=== PATIENT | female | born 1945 | race Native Hawaiian/Other Pacific Islander ===

== ENCOUNTER 2022-09-29 22:37 | Emergency (ER) | payer OTHER ==
[~2022-09-29] VITALS: Ht 142.2 cm; Wt 92.5 kg
[2022-09-29 22:40] VITALS: BP 177/93; TEMP 98.2
[2022-09-29 23:12] LABS: PLATELET COUNT 103 K/uL (152-353)
[2022-09-30] MEDS ORDERED: ASPERCREME LIDOCA41 EX (08:59)
[2022-09-30] MEDS ORDERED: CALCIUM 600 WIT1 TAB PO (09:00)
[2022-09-30] MEDS ORDERED: ROSUVASTATIN CA40 MG PO (09:00)
[2022-09-30] MEDS ORDERED: DULOXETINE HCL20 MG PO (09:01)
[2022-09-30] MEDS ORDERED: HYDR25TA60 PO (09:01)
[2022-09-30] MEDS ORDERED: LOSA50TA PO (09:02)
[2022-09-30] MEDS ORDERED: LANTUS SOL100 UNIT/M SC (09:02)
[2022-09-30] MEDS ORDERED: NOVOLOG100 UNIT/M SC (09:03)
[2022-09-30] MEDS ORDERED: METF100038 PO (09:03)
[2022-09-30] MEDS ORDERED: OXYCODONE HYDRO10 MG PO (09:04)
[2022-09-30] MEDS ORDERED: PEPTO-BISM525 MG/15 PO (09:05)
[2022-09-30] MEDS ORDERED: [UNRECOGNIZED DRUG - OTHER] PO (09:06)
[2022-09-30] MEDS ORDERED: LYRICA100 MG PO (09:06)
[2022-09-30] MEDS ORDERED: DAILY PROBIOTI250 MG PO (09:07)
[2022-09-30] MEDS ORDERED: RYBELSUS14 MG PO (09:08)
[2022-09-30] MEDS ORDERED: ROPINIROLE2 M1 PO (09:08)
[2022-09-30] MEDS ORDERED: TRAZ100T PO (09:09)
[2022-09-30] MEDS ORDERED: DICL1GEL2 TOP (09:10)
[2022-09-30] MEDS ORDERED: EZETIMIBE10 MG PO (09:10)
[2022-09-30] MEDS ORDERED: ONDA4TAB3 PO (09:12)
[2022-10-07] MEDS ORDERED: CALC600T4 PO (11:03)
[2022-10-07] MEDS ORDERED: KAOPECTATE262 MG/15 PO (11:03)
[2022-10-07] MEDS ORDERED: Atorvastatin Calcium PO (11:03)
[2022-10-07] MEDS ORDERED: HYDR25TA60 PO (11:04)
[2022-10-07] MEDS ORDERED: Voltaren GEL 1% 100G TOP (11:04)
[2022-10-07] MEDS ORDERED: EZET10TA13 PO (11:04)
[2022-10-07] MEDS ORDERED: DULO30CA PO (11:04)
[2022-10-07] MEDS ORDERED: CHOL100034 PO (11:04)
[2022-10-07] MEDS ORDERED: INSU100P SC (11:05)
[2022-10-07] MEDS ORDERED: INSU-1996 SC (11:05)
[2022-10-07] MEDS ORDERED: ONDA4TAB3 PO (11:06)
[2022-10-07] MEDS ORDERED: LIDOPATCH TOP (11:06)
[2022-10-07] MEDS ORDERED: METF500T PO (11:06)
[2022-10-07] MEDS ORDERED: LOSA50TA PO (11:06)
[2022-10-07] MEDS ORDERED: TRAZ50TA36 PO (11:07)
[2022-10-07] MEDS ORDERED: ROPINIROLE0.5 MG PO (11:07)
[2022-10-07] MEDS ORDERED: MIRALAX 17GM PAK PO (11:07)
[2022-10-07] MEDS ORDERED: LYRICA50 MG PO (11:07)
== END 2022-09-30 00:25 | disposition other institution (70) ==
LOC: ED 22:37
PROVIDERS: Family Medicine
DX: F29 Unspecified psychosis not due to a substance or known physiological condition (principal); F03.90 Unspecified dementia, unspecified severity, without behavioral disturbance, psychotic disturbance, mood disturbance, and anxiety; Z02.79 Encounter for issue of other medical certificate
CPT/HCPCS: 80053; 81002; 85027; 87635; 93005; 99283; U0003